=== PATIENT | female | born 1945 | race Caucasian/White ===

== ENCOUNTER 2018-07-24 04:50 | Inpatient (IN) ==
[2018-07-18 13:23] LABS: Appearance,Urine CLOUDY; Bacteria,Urine FEW /hpf (0); Bilirubin,Urine NEG (NEG); Color,Urine YELLOW; Glucose,Urine (UA) NEGATIVE (NEG); Leukocyte Esterase,Urine 500 /uL (NEG); Protein,Urine NEG (NEG); Specific Gravity,Urine 1.019 (1.000-1.035); Urine Blood 0.03 mg/dL (<0.03); Urine RBC 8 /hpf (0-1); Urine Squamous Epithelial Cell 24 /hpf (0-4); Urine Transitional Epi Cells < 1 /hpf (0-2); Urine WBC > 182 /hpf (0-4); Urobilinogen,Urine NEG (NEG)
[2018-07-18 16:43] LABS: Basophils # (Auto) 0 K/mcL (0.0-0.3); Basophils % (Auto) 0.3 % (0.0-2.0); Eosinophils # (Auto) 0.1 K/mcL (0.0-0.7); Eosinophils % (Auto) 1.5 % (0.0-7.0); Granulocytes % (Auto) 55.4 % (38.0-78.0); Lymphocytes # (Auto) 3.3 K/mcL (1.5-4.8); Lymphocytes % (Auto) 35.2 % (15.5-49.0); Mean Cell Volume 86.4 fL (80.0-100.0); Mean Corpuscular HGB Conc 32.4 g/dL (31.0-36.0); Monocytes # (Auto) 0.7 K/mcL (0.1-0.9); Monocytes % (Auto) 7.6 % (1.0-12.0); Platelet Count 194 K/mcL (140-440); RBC 4.59 M/mcL (4.00-5.20); Red Cell Distribution Width 15.6 % (11.5-14.5)
[2018-07-18 17:26] LABS: Blood Urea Nitrogen 21 mg/dl (8-23)
[2018-07-24] MEDS ORDERED: PREGABALIN 75 MG CAPSULE PO SCH (07:00)
[2018-07-24] MEDS ORDERED: ACETAMINOPHEN 500 MG TABLET PO SCH (07:00)
[2018-07-24] MEDS ORDERED: CELECOXIB 200 MG CAPSULE PO SCH (07:00)
[2018-07-24] MEDS ORDERED: oxyCODONE 10 MG TAB.ER.12H PO SCH (07:00)
[2018-07-24] MEDS ORDERED: 0.9 % SODIUM CHLORIDE 9 ML, KETOROLAC 30 MG, ROPIVACAINE HCL/PF 49.5 ML, EPINEPHrine 0.... IJ SCH (07:00)
[2018-07-24] MEDS ORDERED: ceFAZolin 1 GM VIAL IV SCH (07:00)
[2018-07-24] MEDS ORDERED: ROPIVACAINE HCL/PF 20 ML VIAL IJ ONE (07:40)
[2018-07-24] MEDS ORDERED: MIDAZOLAM 2 MG/2 ML VIAL IV ONE (07:40)
[2018-07-24] MEDS ORDERED: LIDOCAINE HCL/PF 100 MG/5 ML SYRINGE IV ONE (07:40)
[2018-07-24] MEDS ORDERED: ONDANSETRON 4 MG/2 ML VIAL IV ONE (07:40)
[2018-07-24] MEDS ORDERED: DEXAMETHASONE 10 MG/ML VIAL IV ONE (07:40)
[2018-07-24] MEDS ORDERED: GLYCOPYRROLATE 0.2 MG/ML VIAL IV ONE (07:40)
[2018-07-24] MEDS ORDERED: KETAMINE 100 MG/ML ML IV ONE (07:40)
[2018-07-24] MEDS ORDERED: ePHEDrine 50 MG/ML AMPUL IV ONE (07:40)
[2018-07-24] MEDS ORDERED: TRANEXAMIC ACID 1,000 MG/10 ML VIAL IV ONE ×2 (07:40→09:05)
[2018-07-24] MEDS ORDERED: PROPOFOL 200 MG/20 ML VIAL IV ONE (07:40)
[2018-07-24] MEDS ORDERED: NALOXONE HCL 0.4 MG/ML VIAL IV PRN (08:00)
[2018-07-24] MEDS ORDERED: HYDROmorphone 2 MG/ML VIAL IV PRN (08:00)
[2018-07-24] MEDS ORDERED: BENZOCAINE/MENTHOL 1 LOZENGE PO PRN ×2 (08:00→09:05)
[2018-07-24] MEDS ORDERED: LACTATED RINGERS 250 ML IV PRN (08:00)
[2018-07-24] MEDS ORDERED: ONDANSETRON 4 MG/2 ML VIAL IV PRN ×2 (08:00→09:05)
[2018-07-24] MEDS ORDERED: MEPERIDINE 25 MG/ML SYRINGE IV PRN (08:00)
[2018-07-24] MEDS ORDERED: METOPROLOL TARTRATE 5 MG/5 ML VIAL IV PRN (08:00)
[2018-07-24] MEDS ORDERED: METHOCARBAMOL 1,000 MG/10 ML VIAL IV PRN (08:00)
[2018-07-24] MEDS ORDERED: LACTATED RINGERS 1,000 ML IV SCH (08:00)
[2018-07-24] MEDS ORDERED: FLUMAZENIL 0.1 MG/ML ML IV PRN (08:00)
[2018-07-24] MEDS ORDERED: IPRATROPIUM/ALBUTEROL 3 ML AMPUL.NEB NEB PRN (08:00)
[2018-07-24] MEDS ORDERED: GENTAMICIN SULFATE 800 MG/20 ML VIAL IR ONE (08:05)
[2018-07-24] MEDS ORDERED: BISACODYL 10 MG SUPP.RECT PR PRN (09:05)
[2018-07-24] MEDS ORDERED: MAGNESIUM HYDROXIDE 30 ML ORAL.SUSP PO PRN (09:05)
[2018-07-24] MEDS ORDERED: FLEETS ADULT ENEMA PR PRN (09:05)
[2018-07-24] MEDS ORDERED: POLYETHYLENE GLYCOL 3350 17 GM PACKET PO PRN (09:05)
[2018-07-24] MEDS ORDERED: TEMAZEPAM 15 MG CAPSULE PO PRN (09:05)
[2018-07-24] MEDS ORDERED: ACETAMINOPHEN 325 MG TABLET PO PRN (09:05)
--- NOTE | 2018-07-24 09:05 | Brief Operative Note ---
Date of procedure: 07/24/18 Pre-op diagnosis: Right knee djd severe Post-op diagnosis: same Procedure: right tka cemented Grafts/Implants: Yes Anesthesia: GETA Findings: none Complications: none Complications Description: 07/24/18 09:03 right knee djd Surgeon: Chencho Espinal Building Specialist: Maulik Bass Estimated blood loss (cc): 30 Tourniquet Time (Minutes): 44 Specimens Removed/Pathology: none sent Condition: stable Disposition: PACU
[2018-07-24] MEDS: fentaNYL 100 MCG/2 ML VIAL IV PRN ×4 (09:27→09:45)
--- NOTE | 2018-07-24 09:31 | Operative Note ---
DATE OF OPERATION: 07/24/2018 PREOPERATIVE DIAGNOSIS: Right knee degenerative arthritis. POSTOPERATIVE DIAGNOSIS: Right knee degenerative arthritis. PROCEDURE: Right total knee arthroplasty. SURGEON: Chencho Espinal MD TAKE AWAY WORKER: Maulik Bass PA-C ANESTHESIA: General LMA and spinal by Jason Mccoy CRNA COMPLICATIONS: None. TOURNIQUET TIME: Approximately 44 minutes. ESTIMATED BLOOD LOSS: About 30 mL DESCRIPTION OF PROCEDURE: The patient was brought to the operating room, put to sleep with general LMA anesthesia. Once asleep, the patient had the right leg sterilely prepped and draped in the usual sterile fashion. Ioban was placed over the skin. A timeout performed to confirm the operative site and procedure. Preop antibiotics and tranexamic acid was given. We then made a midline incision. We then proceeded with exposing the capsule. A mid vastus approach was performed. We then exposed the joint and identified the severe arthritis of the lateral compartment and posterior medial compartment was severely worn with spurs in both compartments. At this point, we proceeded with total knee arthroplasty and made an intramedullary guide amelia into the femur and the tibia and made our distal femoral cut at 9 mm, made our anterior and posterior chamfer cuts for a size 4 after sizing the femur. We placed an intramedullary guide amelia down the tibia and made our cut at 8 mm from the least involved medial compartment. Once done, we then removed the remnants of the ACL and meniscus. Spurs were removed. We punched into place a size 4 tibial baseplate and made the box cut for a size 4 femur. I then irrigated thoroughly and then placed a size 4 trial on the femur. We placed a size 9, 8 and 7 poly. We had to make a secondary cut on the tibia because of the tightness of the joint. We recut the tibia 2 mm thinner. We then trialed a size 9 poly which seemed to fit very nicely with full range of motion, 1 mm play medial and lateral throughout extension, mid flexion and flexion. We irrigated thoroughly and then injected the soft tissues with post-inject formula, thoroughly irrigated the joint and then cemented into place a size 4 tibial baseplate, size 4 femur. We placed a 9 mm poly, placed the knee in extension and prepared the patella which measured 24 mm. This was cut to 14 mm in total thickness and we placed a 35 mm patellar button that covered very nicely. A small chamfer cut was made laterally. We then cemented into place a 35 mm patellar button. We irrigated thoroughly and then deflated the tourniquet at 44 minutes. We controlled bleeding with the Bovie. We placed the knee at mid flexion and reinspected for any bone cement. We thoroughly irrigated the knee once more, placed Stratafix stitches x2 along the medial capsule to close on the mid vastus approach. We then closed the skin with Stratafix and adhesive closure. The patient tolerated this well. There was no complication. Sterile bandage was applied. RBH:angi Job ID: [id number] Doc ID: [id number] Chencho Espinal MD
[2018-07-24] MEDS: HYDROmorphone 2 MG/ML VIAL IV PRN ×2 (10:07→11:00)
--- NOTE | 2018-07-24 10:28 | XRay Report ---
CLINICAL INFORMATION: Postsurgical follow-up TECHNIQUE: AP and crosstable lateral right knee COMPARISON: None. FINDINGS: Previous right total knee arthroplasty. Femoral and tibial components are in anatomic positions. There is postsurgical soft tissue and intra-articular gas. IMPRESSION: Right total knee arthroplasty Interpreted and Authenticated by: Son Elena 07/24/18
[2018-07-24] MEDS: 0.45 % SODIUM CHLORIDE 1,000 ML IV SCH ×3 (10:35→20:50)
[2018-07-24] MEDS: HYDROcodone/APAP 10/325MG TABLET PO PRN ×4 (10:59→23:59)
[2018-07-24] MEDS: KETOROLAC 15 MG/ML VIAL IV SCH ×3 (10:59→23:58)
[2018-07-24] MEDS: FERROUS SULFATE 325 MG TABLET PO SCH ×2 (10:59→17:28)
[2018-07-24] MEDS: 0.9 % SODIUM CHLORIDE 10 ML SYRINGE IV SCH ×2 (12:11→22:49)
[2018-07-24] MEDS: ceFAZolin 1 GM VIAL IV SCH ×2 (17:28→23:59)
[2018-07-24] MEDS: DOCUSATE SODIUM 100 MG CAPSULE PO SCH (20:51)
[2018-07-24] MEDS: ASPIRIN 325 MG ENTERIC COATED TABLET PO SCH (20:51)
[2018-07-24] MEDS ORDERED: CALCIUM CARB PO SCH (21:00)
[2018-07-24] MEDS ORDERED: MAG OX PO SCH (21:00)
[2018-07-24] MEDS ORDERED: ZINC SULF PO SCH (21:00)
[2018-07-24] MEDS ORDERED: SENNOSIDES 1 TABLET PO SCH (21:00)
[2018-07-24] MEDS ORDERED: ATORVASTATIN 20 MG TABLET PO SCH (21:00)
[2018-07-25] MEDS: 0.45 % SODIUM CHLORIDE 1,000 ML IV SCH (05:04)
[2018-07-25] MEDS: 0.9 % SODIUM CHLORIDE 10 ML SYRINGE IV SCH ×2 (05:09→13:11)
[2018-07-25] MEDS: KETOROLAC 15 MG/ML VIAL IV SCH ×3 (05:09→16:43)
[2018-07-25] MEDS: HYDROcodone/APAP 10/325MG TABLET PO PRN ×4 (05:09→17:02)
[2018-07-25] MEDS: HYDROmorphone 2 MG/ML VIAL IV PRN (06:42)
[2018-07-25] MEDS ORDERED: LEVOTHYROXINE 75 MCG TABLET PO SCH (07:30)
--- NOTE | 2018-07-25 08:04 | Orthopedic Progress Note ---
Subjective Patient information: Note initiated : 07/25/18 at 8:03 am Service Date, if different from initiated Date: [] Patient: Jennie Ho 72 y/o F admitted on 07/24/18 for Right Total Knee Arthroplasty. Chief Complaint: [Pt is stable this morning on post operative day 1 without any significant concerns or complaints. Patients vital signs have remained stable. Patients dressing is dry and is grossly intact from a neurovascular and motor standpoint. Patients 10 point ROS is otherwise negative. ] Objective Vital signs: Vital Signs Temp Pulse Resp BP Pulse Ox 07/25/18 04:00 97.4 F 54 L 20 104/61 93 07/25/18 00:00 97.3 F 52 L 16 112/63 91 07/24/18 20:00 97.2 F 60 20 104/63 95 07/24/18 15:46 58 L 114/75 92 07/24/18 12:56 55 L 119/73 91 07/24/18 12:05 61 112/66 95 07/24/18 11:35 52 L 108/65 94 07/24/18 11:05 58 L 117/67 93 07/24/18 10:50 55 L 120/68 92 07/24/18 10:40 93 07/24/18 10:35 49 L 107/60 92 07/24/18 10:20 56 L 105/62 91 07/24/18 10:12 98.2 F 54 L 11 L 122/64 96 07/24/18 10:02 67 13 118/45 94 07/24/18 09:45 98.2 F 72 17 142/61 91 07/24/18 09:35 87 17 142/61 91 07/24/18 09:30 68 15 138/64 97 07/24/18 09:25 77 20 145/59 92 07/24/18 09:20 98.1 F 85 14 134/61 96 Intake and Output 07/24/18 07/25/18 07/25/18 21:59 05:59 13:59 Intake Total 1740 800 Output Total 300 Balance 1740 500 Intake: IV 1000 Sodium Chloride 0.45% 1,000 ml 1000 @ 100 mls/hr IV .Q10H [facility]IA Rx#: [id number] Oral 740 800 Output: Void Amount 300 Other: Meal Dinner Percent of Meal Consumed 100% Feeding Ability Independent # Voids 1 Weight 270 lb Intake & Output: Intake & Output 07/24/18 07/25/18 07/25/18 21:59 05:59 13:59 Intake Total 1740 800 Output Total 300 Balance 1740 500 Weight 270 lb Intake: IV 1000 Sodium Chloride 0.45% 1,000 ml 1000 @ 100 mls/hr IV .Q10H [facility]IA Rx#: [id number] Oral 740 800 Output: Void Amount 300 Other: Meal Dinner Percent of Meal Consumed 100% Feeding Ability Independent # Voids 1 Incision: Yes healing Incision clean and dry: Yes Dressing: Yes clean Weight bearing status: full Neurological exam IM: Yes motor sensory intact, Yes neurovascular intact Extremities exam IM: Yes Foot pink and warm, Yes neurovascular intact - Labs CBC & BMP: 07/25/18 04:45 07/18/18 11:54 Labs: 07/25/18 07/18/18 04:45 11:54 Hgb 12.8 Hct 32.9 L 39.6 Assessment and Plan (1) Hx of total knee arthroplasty The patient has been educated regarding dressing care, Physical Therapy recommendations, home exercises, restrictions, and follow up appointments. The patient has had all necessary DME prescribed. The patient has remained relatively stable during their hospital course. Leave Dermabond patch intact until followup Status: Acute
--- NOTE | 2018-07-25 08:06 | Discharge Summary ---
Ortho Discharge - TKA - Patient Instructions Diet: Regular Diet Activity: activity as tolerated, weight bearing as tolerated Total Knee Protocol: For Total Knee: Start ROM ESTELLE with stationary bike or rocking chair. Work on gaining full extension of knee. Posterior dislocation precautions provided. Hip abductor strengthening and gait training instructions provided. Apply Cryocuff as instructed. Dressing Care: May shower in 2 days - Problem Maintenance (1) Hx of total knee arthroplasty Status: Acute - Follow Up Plan Follow Up Appointments: Maulik Bass PA-C [[employer] Specialist] - 08/08/18 10:00 am Disposition: Home, Self-Care Prognosis: Good Rehab Potential: Good I certify that the patient requires SNF services: No Overall status at discharge: patient is progressing back to baseline - Orders For Discharge Prescriptions: Aspirin [Ecotrin] 325 mg PO BID #60 tab.ec Docusate Sodium [Colace] 100 mg PO BID #60 capsule HYDROcodone/APAP 10/325MG [[place] 10-325Mg] 1 - 2 tab PO Q4HP PRN #75 tab PRN Reason: Pain Level 3-6
[2018-07-25] MEDS ORDERED: BISOPROLOL 5 MG TABLET PO SCH (09:00)
[2018-07-25] MEDS ORDERED: ASPIRIN 81 MG TAB.CHEW PO SCH (09:00)
[2018-07-25] MEDS ORDERED: CHLORTHALIDONE 25 MG TABLET PO SCH (09:00)
[2018-07-25] MEDS ORDERED: LOSARTAN 50 MG TABLET PO SCH (09:00)
[2018-07-25] MEDS: DOCUSATE SODIUM 100 MG CAPSULE PO SCH (09:04)
[2018-07-25] MEDS: ASPIRIN 325 MG ENTERIC COATED TABLET PO SCH (09:04)
[2018-07-25] MEDS: FERROUS SULFATE 325 MG TABLET PO SCH ×2 (11:28→16:43)
== END 2018-07-25 17:30 | disposition home or self-care (01) | DRG 470 ==
LOC: MEDSUR 04:50
PROVIDERS: ADMIT Orthopaedic Surgery; ATTEND Orthopaedic Surgery

== ENCOUNTER 2021-07-25 07:00 | Inpatient (IN) ==
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
[2021-07-25] MEDS ORDERED: DILTIAZEM 25 MG/5 ML VIAL IV ONE ×2 (07:34→08:58)
[2021-07-25] MEDS ORDERED: ONDANSETRON 4 MG/2 ML VIAL IV ONE (07:34)
[2021-07-25] MEDS ORDERED: 0.9 % SODIUM CHLORIDE 1,000 ML IV ONE (07:36)
--- NOTE | 2021-07-25 08:20 | XRay Report ---
INDICATION: dyspnea TECHNIQUE: AP portable semiupright chest x-ray COMPARISON: Previous chest x-ray dated 04/03/2021 FINDINGS: Examination is suboptimal due to patient's large size and portable technique Lungs:No acute or focal pulmonary parenchymal infiltrate. No pulmonary parenchymal mass Heart, vascular:No significant cardiomegaly. Pulmonary vascularity is normal. No pulmonary edema or pulmonary congestion Mediastinum, chriss:No mediastinal widening. No hilar mass Pleura:No pleural fluid. No pleural-based mass or calcification Skeletal:Previous median sternotomy IMPRESSION: 1. No acute abnormality 2. No significant interval change since 04/03/2021 Interpreted and Authenticated by: Son Elena 07/25/21
[2021-07-25 08:37] LABS: Basophils # (Auto) 0.01 K/mcL (0.00-0.30); Basophils % (Auto) 0.2 % (0.0-2.0); Eosinophils # (Auto) 0 K/mcL (0.00-0.70); Eosinophils % (Auto) 0 % (0.0-7.0); Hematocrit 41.9 % (34.1-44.9); Hemoglobin 13.9 g/dL (11.2-15.7); Lymphocytes # (Auto) 1.29 K/mcL (1.50-4.80); Lymphocytes % (Auto) 29.4 % (15.5-49.0); Mean Cell Volume 81.5 fL (80.0-100.0); Mean Corpuscular HGB Conc 33.2 g/dL (31.0-36.0); Mean Platelet Volume 10.9 fL (7.4-10.4); Monocytes # (Auto) 0.46 K/mcL (0.10-0.90); Monocytes % (Auto) 10.5 % (1.0-12.0); Neutrophils % (Auto) 59.9 % (38.0-78.0); Platelet Count 156 K/mcL (140-440); RBC 5.14 M/mcL (3.59-5.38); Red Cell Distribution Width 15.6 % (11.5-14.5); WBC 4.4 K/mcL (4.5-11.0)
[2021-07-25 08:55] LABS: proBNP 701.6 pg/mL (<125.0)
[2021-07-25 08:57] LABS: ALT/SGPT 73 U/L (<40); AST/SGOT 60 U/L (<32); Albumin 3.8 gm/dL (3.2-5.2); Albumin/Globulin Ratio 1.7 (1.0-2.3); Alkaline Phosphatase 92 U/L (39-117); Bilirubin,Total 0.5 mg/dL (0.1-1.0); Blood Urea Nitrogen 32 mg/dL (8-23); Calcium 8.6 mg/dL (8.6-10.4); Carbon Dioxide 18 mmol/L (22-30); Chloride 102 mmol/L (96-108); Globulin 2.3 gm/dL (2.2-3.7); Glomerular Filtration Rate 44; Glucose 120 mg/dL (70-105)
[2021-07-25] MEDS ORDERED: DILTIAZEM 30 MG TABLET PO ONE (08:58)
[2021-07-25] MEDS ORDERED: POTASSIUM CHLORIDE 20 MEQ TABLET PO ONE (08:59)
[2021-07-25 11:43] LABS: Appearance,Urine Clear (Clear); Bacteria,Urine FEW /hpf (0); Bilirubin,Urine Negative (Negative); Color,Urine Yellow; Culture Indicated,Urine No; Glucose,Urine (UA) Negative (Negative); Ketones,Urine Negative (Negative); Leukocyte Esterase,Urine Small /uL (Negative); Mucus,Urine FEW /hpf; Nitrate,Urine Negative (Negative); PH,Urine 5.5 (5.0-9.0); Protein,Urine Negative (Negative); Specific Gravity,Urine 1.015 (1.000-1.035); Urine Blood Moderate ery/mcL (Negative); Urine Hyaline Cast 4 /lph (0-2); Urine RBC 20 /hpf (0-3); Urine Squamous Epithelial Cell 7 /hpf (0-4); Urine Transitional Epi Cells < 1 /hpf (0-2); Urine WBC 11 /hpf (0-4); Urobilinogen,Urine Normal
[2021-07-25] MEDS ORDERED: cefTRIAXone 1 GM VIAL IV ONE (11:57)
[2021-07-25] MEDS ORDERED: METOPROLOL TARTRATE 5 MG/5 ML VIAL IV ONE (11:58)
--- NOTE | 2021-07-25 12:18 | EKG ---
[facility] Test Date: 2021-07-25 Pat Name: Jennie Balbuena Department: ED Room: Gender: Female Can Repairer: : 1945 Requested By: Luis F Blount Order Number: [id number] Reading MD: Manuel Toney Measurements Intervals [place] Rate: 134 P: TN: QRS: 52 QRSD: 99 T: -16 QT: 335 QTc: 501 Interpretive Statements Atrial fibrillation Anteroseptal infarct, age indeterminate Prolonged QT interval Electronically Signed On 07-25-2021 12:18:41 PST by Manuel Toney /store/M0/[id number]
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
[2021-07-25] MEDS ORDERED: SENNOSIDES 1 TABLET PO PRN (16:25)
[2021-07-25] MEDS ORDERED: IPRATROPIUM/ALBUTEROL 3 ML AMPUL.NEB NEB PRN (16:25)
[2021-07-25] MEDS ORDERED: ONDANSETRON 4 MG/2 ML VIAL IV PRN (16:25)
[2021-07-25] MEDS ORDERED: METOPROLOL TARTRATE 5 MG/5 ML VIAL IV PRN (16:25)
[2021-07-25] MEDS ORDERED: LACTULOSE 20 GM/30 ML ORAL.SOL PO PRN (16:25)
[2021-07-25] MEDS ORDERED: REMDESIVIR 200 MG in 0.9 % SODIUM CHLORIDE 250 ML IV ONE (16:25)
[2021-07-25] MEDS ORDERED: ACETAMINOPHEN 325 MG TABLET PO PRN (16:25)
[2021-07-25] MEDS ORDERED: DEXAMETHASONE 10 MG/ML VIAL ONE (16:37)
[2021-07-25] MEDS: DEXAMETHASONE 10 MG/ML VIAL IV SCH (17:03)
[2021-07-25] MEDS: 0.9 % SODIUM CHLORIDE 1,000 ML IV SCH (17:07)
[2021-07-25] MEDS: DOCUSATE SODIUM 100 MG CAPSULE PO SCH (20:24)
[2021-07-25] MEDS: 0.9 % SODIUM CHLORIDE 10 ML SYRINGE IV SCH (20:33)
[2021-07-25] MEDS: ENOXAPARIN 40 MG/0.4 ML SYRINGE SQ SCH (20:33)
[2021-07-25] MEDS: ATORVASTATIN 40 MG TABLET PO SCH (20:33)
[2021-07-25] MEDS ORDERED: METOPROLOL TARTRATE 50 MG TABLET PO SCH (21:00)
[2021-07-26] MEDS: 0.9 % SODIUM CHLORIDE 1,000 ML IV SCH ×3 (01:04→19:04)
[2021-07-26] MEDS: 0.9 % SODIUM CHLORIDE 10 ML SYRINGE IV SCH ×3 (05:14→20:48)
[2021-07-26 07:17] LABS: Hematocrit 41.3 % (34.1-44.9); Hemoglobin 12.6 g/dL (11.2-15.7); Mean Cell Volume 87.5 fL (80.0-100.0); Mean Corpuscular HGB Conc 30.5 g/dL (31.0-36.0); Platelet Count 137 K/mcL (140-440); RBC 4.72 M/mcL (3.59-5.38); Red Cell Distribution Width 15.7 % (11.5-14.5); WBC 2.4 K/mcL (4.5-11.0)
[2021-07-26 07:40] LABS: ALT/SGPT 81 U/L (<40); AST/SGOT 68 U/L (<32); Albumin 3.3 gm/dL (3.2-5.2); Albumin/Globulin Ratio 1.6 (1.0-2.3); Alkaline Phosphatase 88 U/L (39-117); Bilirubin,Direct 0.2 mg/dL (<0.3); Bilirubin,Total 0.4 mg/dL (0.1-1.0); Blood Urea Nitrogen 23 mg/dL (8-23); Calcium 7.9 mg/dL (8.6-10.4); Carbon Dioxide 18 mmol/L (22-30); Chloride 106 mmol/L (96-108); Glomerular Filtration Rate 55; Glucose 143 mg/dL (70-105); Lactate Dehydrogenase 216 U/L (135-225); Triglycerides 82 mg/dL (<150); Uric Acid 6.2 mg/dL (2.5-8.0)
[2021-07-26 07:51] LABS: C-Reactive Protein 0.6 mg/dL (0.03-0.80); Thyroid Stimulating Hormone 0.44 uIU/mL (0.27-5.01)
[2021-07-26] MEDS: DEXAMETHASONE 10 MG/ML VIAL IV SCH (07:57)
[2021-07-26] MEDS: VITAMIN D3 25 MCG TABLET PO SCH (07:57)
[2021-07-26] MEDS: ENOXAPARIN 40 MG/0.4 ML SYRINGE SQ SCH ×2 (07:58→20:05)
[2021-07-26] MEDS: ASPIRIN 81 MG TAB.CHEW PO SCH (07:58)
[2021-07-26] MEDS: SERTRALINE 100 MG TABLET PO SCH (07:58)
[2021-07-26] MEDS: DOCUSATE SODIUM 100 MG CAPSULE PO SCH ×2 (07:58→20:05)
[2021-07-26] MEDS: LEVOTHYROXINE 75 MCG TABLET PO SCH (07:58)
[2021-07-26 08:33] LABS: Anisocytosis 1+ (None Seen); Band Neutrophils % 2 % (0-10); Lymphocytes % 32 % (15-49); Monocytes % (Manual) 14 % (1-12); Platelet Estimate DECREASED (Normal); RBC Morphology ABNORMAL (Normal); Reactive Lymphocytes 1 % (0-2); Segmented Neutrophils % 51 % (38-78)
[2021-07-26] MEDS ORDERED: LEVOTHYROXINE 75 MCG PO SCH (09:00)
[2021-07-26] MEDS ORDERED: METOPROLOL TARTRATE 50 MG TABLET PO SCH ×2 (09:00→11:47)
--- NOTE | 2021-07-26 10:30 | Internal Med Progress Note ---
SUBJECTIVE Subjective Patient information: Note initiated : 07/26/21 at 10:23 am Service Date, if different from initiated Date: [] Patient: Jennie Ho a 75 y/o F admitted on 07/25/21 for short of breath. Chief Complaint: [] Principal diagnosis: Shortness of breath Interval history: Ms. Yoni Balbuena is a 75 year old female with a history of hypertension, chronic kidney disease stage III, atrial fibrillation, coronary artery disease status post CABG, hypothyroidism, mild COPD, obstructive sleep apnea, diastolic dysfunction, obesity presented to the emergency department for shortness of breath and nausea. The patient was recently exposed to Covid by a family member. In the emergency department, the patient tested positive for Covid via Melani of rapid antigen test. The patient had a 2 L/min oxygen requirement. In addition, the patient was found to be in atrial fibrillation with rapid ventricular response and received multiple doses of IV Cardizem then IV Lopressor. Chest x-ray did not show any acute changes. CBC and chemistry panel remarkable for mild leukopenia, hypokalemia, creatinine of 1.2 which is near her baseline, mildly elevated ALT and AST. Hospital medicine was consulted for admission. The patient says that her symptoms began about 7 days prior to admission. The patient has not been vaccinated for COVID. 07/26 On room air, converted from atrial fibrillation to sinus bradycardia. Decrease Lopressor to 25 mg twice daily. Discussed risks and benefits of oral anticoagulation for paroxysmal atrial fibrillation, the patient wants to think about it some more and possibly discuss it with her primary care provider. Hypokalemia and hypomagnesemia resolved after supplementation. Creatinine back to patient's baseline. Mildly elevated LFTs. Patient still feels very weak, not ready to go home yet. Awaiting PT recommendations. Physical exam Head: Atraumatic, normal inspection. Eyes: normal appearance, no scleral icterus. Neck: full ROM Respiratory: no respiratory distress. Cardiovascular: Regular bradycardia, S1, S2. GI/Abdominal: Obesely distended, soft, nontender, no guarding. Extremities: full range of motion, nontender. Neurological: CN II-XII intact, intact motor, intact sensation. Psychiatric: normal mood. Skin: warm, normal color Constitutional Vitals: Vital Signs Temp Pulse Resp BP Pulse Ox 97.0 F 46 L 22 128/84 94 07/26/21 08:01 07/26/21 08:01 07/26/21 08:01 07/26/21 08:01 07/26/21 08:01 Period Temp Pulse Resp BP Sys/[place] Pulse Ox Last 24 Hr 97.0 F-98.8 F 25-144 8-30 81-160/58-139 88-98 Intake and Output 07/25/21 07/26/21 07/26/21 21:59 05:59 13:59 Intake Total 086 171 1557 Output Total 625 400 275 Balance -343 586 5978 Weight 134.626 kg Intake & Output: Intake & Output 07/25/21 07/26/21 07/26/21 21:59 05:59 13:59 Intake Total 964 988 0315 Output Total 625 400 275 Balance -254 458 5333 Weight 134.626 kg Intake: IV 160 488 2831 Sodium Chloride 0.9% 1,000 ml @ 994 1000 125 mls/hr IV .Q8H [facility] Rx#: [id number] [place] 200 mg In Sodium 250 Chloride 0.9% 250 ml @ 500 mls/ hr IV ONCE ONE Rx#:[id number] Oral 700 Output: Void Amount 625 400 275 Other: Meal Dinner Breakfast Percent of Meal Consumed 100% 100% Feeding Ability Independent Independent Urine Appearance Sediment Clear Clear Urine Color Light Faina Bright Yellow Light Faina Urine Odor Strong Stool Size Small Stool Color Brown Stool Consistency Soft # Bowel Movements 1 OBJ DATA Labs CBC & Chem 7: 07/26/21 06:02 07/26/21 06:01 Labs: Abnormal Lab Results 07/26/21 07/26/21 07/25/21 06:02 06:01 09:45 WBC 2.4 L MCHC 30.5 L RDW 15.7 H Plt Count 137 L MPV 11.0 H Lymph # (Auto) Monocytes % (Manual) 14 H Platelet Estimate Decreased A RBC Morphology Abnormal A Anisocytosis 1+ A D-Dimer Potassium Carbon Dioxide 18 L BUN Creatinine Glucose 143 H Calcium 7.9 L GGT 50 H AST 68 H ALT 81 H NT-Pro-B Natriuret Pep Total Protein 5.3 L Globulin 2.0 L Urine Occult Blood Moderate A Ur Leukocyte Esterase Small A Urine RBC 20 H Urine WBC 11 H Ur Squamous Epith Cells 7 H Urine Bacteria Few A Hyaline Casts 4 H Urine Mucus Few A 07/25/21 07/25/21 07/25/21 08:06 08:06 08:06 WBC 4.4 L MCHC RDW 15.6 H Plt Count MPV 10.9 H Lymph # (Auto) 1.29 L Monocytes % (Manual) Platelet Estimate RBC Morphology Anisocytosis D-Dimer 0.60 H Potassium 3.0 L Carbon Dioxide 18 L BUN 32 H Creatinine 1.2 H Glucose 120 H Calcium GGT AST 60 H ALT 73 H NT-Pro-B Natriuret Pep 701.6 H Total Protein Globulin Urine Occult Blood Ur Leukocyte Esterase Urine RBC Urine WBC Ur Squamous Epith Cells Urine Bacteria Hyaline Casts Urine Mucus Meds: Medications Acetaminophen (Acetaminophen 325 Mg Tablet) 650 mg PO Q6HP PRN; Protocol PRN Reason: Per Pain Protocol/Fever > 101 Hydrocodone Bitart/Acetaminophen (Hydrocodone/Apap 5/325mg Tablet) 1 tab PO Q8HP PRN; Protocol PRN Reason: pain Albuterol/Ipratropium (Ipratropium/Albuterol 3 Ml Ampul.Neb) 3 ml NEB Q4HRT PRN PRN Reason: wheezing Aspirin (Aspirin 81 Mg Tab.Chew) 81 mg PO DAILY [facility] Last Admin: 07/26/21 07:58 Dose: 81 mg Documented by: Atorvastatin Calcium (Atorvastatin 40 Mg Tablet) 40 mg PO HS [facility] Last Admin: 07/25/21 20:33 Dose: 40 mg Documented by: Dexamethasone (Dexamethasone 10 Mg/Ml Vial) 6 mg IV DAILY [facility] Stop: 08/03/21 09:01 Last Admin: 07/26/21 07:57 Dose: 6 mg Documented by: Docusate Sodium (Docusate Sodium 100 Mg Capsule) 100 mg PO BID [facility] Last Admin: 07/26/21 07:58 Dose: Not Given Documented by: Enoxaparin Sodium (Enoxaparin 40 Mg/0.4 Ml Syringe) 40 mg SQ BID [facility] Last Admin: 07/26/21 07:58 Dose: 40 mg Documented by: REMDESIVIR 100 mg/ Sodium (Chloride) 250 mls @ 500 mls/hr IV DAILY@1200 [facility] Stop: 07/29/21 12:29 Sodium Chloride (Sodium Chloride 0.9%) 1,000 mls @ 125 mls/hr IV .Q8H [facility] Last Admin: 07/26/21 09:50 Dose: 125 mls/hr Documented by: Lactulose (Lactulose 20 Gm/30 Ml Oral.Grazyna) 10 gm PO DAILYP PRN PRN Reason: Constipation Levothyroxine Sodium (Levothyroxine 75 Mcg Tablet) 75 mcg PO QAMAC [facility] Last Admin: 07/26/21 07:58 Dose: 75 mcg Documented by: Metoprolol Tartrate (Metoprolol Tartrate 5 Mg/5 Ml Vial) 5 mg IV Q2H PRN PRN Reason: Tachyarrhythmias Metoprolol Tartrate (Metoprolol Tartrate 50 Mg Tablet) 25 mg PO BID [facility] Ondansetron HCl (Ondansetron 4 Mg/2 Ml Vial) 4 mg IV Q4HP PRN; Protocol PRN Reason: Nausea And Vomiting Pneumococcal Polyvalent Vaccine (Pneumococcal 23-Nataly P-Sac Vac 0.5 Ml Syringe) 0.5 ml IM .ONCE ONE Stop: 07/28/21 10:01 Senna (Sennosides 1 Tablet) 2 tab PO HSP PRN PRN Reason: Constipation Sertraline HCl (Sertraline 100 Mg Tablet) 100 mg PO QDAY [facility] Last Admin: 07/26/21 07:58 Dose: 100 mg Documented by: Sodium Chloride (0.9 % Sodium Chloride 10 Ml Syringe) 10 ml IV Q8 [facility] Last Admin: 07/26/21 05:14 Dose: Not Given Documented by: Vitamin D (Vitamin D3 25 Mcg Tablet) 100 mcg PO DAILY [facility] Last Admin: 07/26/21 07:57 Dose: 100 mcg Documented by: A/P Narrative A/P Narrative: Assessment: 75 year old female with a history of hypertension, chronic kidney disease stage III, atrial fibrillation, coronary artery disease status post CABG, hypothyroidism, mild COPD, obstructive sleep apnea, diastolic dysfunction grade 2, obesity presented to the emergency department for shortness of breath and nausea and found to be hypoxic and in atrial fibrillation with rapid ventricular response. The patient tested positive for Covid which is probably the reason for the patient's presentation. Chest x-ray did not show any infiltrates. The patient's symptoms began about 7 days prior to admission, she has not been vaccinated for COVID. The patient was started on dexamethasone and remdesivir for hypoxia in the setting of Covid. She was started on Lopressor 50 mg twice daily. Hypoxia resolved, the patient converted from atrial fibrillation to sinus bradycardia. Lopressor was decreased to 25 mg twice daily. The patient continues to feel fatigue and generally weak. Awaiting PT recommendations. #Generalized weakness and fatigue secondary to COVID #Resolved hypoxic respiratory failure #Paroxysmal atrial fibrillation #Covid illness #Elevated LFTs likely secondary to COVID #Chronic kidney disease stage III #Essential hypertension #Mild COPD #Coronary artery disease status post CABG #Diastolic dysfunction, grade 2 #Hypothyroidism #Obstructive sleep apnea not on CPAP #Obesity BMI 48 Plan -Dexamethasone and remdesivir for COVID illness requiring oxygen supplementation. -Monitor respiratory status. -Follow potassium and magnesium, replace as needed. -Decrease Lopressor to 25 mg twice daily, as needed IV Lopressor for rate control. -Reviewed anticoagulation with the patient: [id number] score 4, HAS-BLED score 3, patient wants to think about anticoagulation -Defer TTE for now as the patient had one on 04/20/2021 and A. fib is a known diagnosis. -Discontinue IV fluid. -Continue home aspirin, atorvastatin, levothyroxine. -Holding home chlorthalidone, losartan for now. -CPAP at bedtime. 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 -Regular diet. -DVT prophylaxis: Lovenox SQ twice daily for obesity. -CODE STATUS: Full -Disposition: Probably home when stable versus SNF for rehab. Time Spent With Patient Time: Total time spent is greater than 50% in coordination of care (as documented) at patient's floor/unit and/or counseling patient: QUALITY VTE Deep Vein Thrombosis/Pulmonary Embolism Present on Admission: No
[2021-07-26] MEDS: METOPROLOL TARTRATE 25 MG TABLET PO SCH ×2 (12:33→20:06)
--- NOTE | 2021-07-26 13:12 | Internal Med Progress Note ---
SUBJECTIVE Subjective Patient information: Note initiated : 07/26/21 at 1:08 pm Service Date, if different from initiated Date: [] Patient: Jennie Ho a 75 y/o F admitted on 07/25/21 for short of breath. Chief Complaint: [] Principal diagnosis: Shortness of breath Interval history: Ms. Yoni Balbuena is a 75 year old female with a history of hypertension, chronic kidney disease stage III, atrial fibrillation, coronary artery disease status post CABG, hypothyroidism, mild COPD, obstructive sleep apnea, diastolic dysfunction, obesity presented to the emergency department for shortness of breath and nausea. The patient was recently exposed to Covid by a family member. In the emergency department, the patient tested positive for Covid via Melani of rapid antigen test. The patient had a 2 L/min oxygen requirement. In addition, the patient was found to be in atrial fibrillation with rapid ventricular response and received multiple doses of IV Cardizem then IV Lopressor. Chest x-ray did not show any acute changes. CBC and chemistry panel remarkable for mild leukopenia, hypokalemia, creatinine of 1.2 which is near her baseline, mildly elevated ALT and AST. Hospital medicine was consulted for admission. The patient says that her symptoms began about 7 days prior to admission. The patient has not been vaccinated for COVID. 07/26 On room air, converted from atrial fibrillation to sinus bradycardia. Decrease Lopressor to 25 mg twice daily. Discussed risks and benefits of oral anticoagulation for paroxysmal atrial fibrillation, the patient wants to think about it some more and possibly discuss it with her primary care provider. Hypokalemia and hypomagnesemia resolved after supplementation. Creatinine back to patient's baseline. Mildly elevated LFTs. Patient still feels very weak, not ready to go home yet. Awaiting PT recommendations. Physical exam Head: Atraumatic, normal inspection. Eyes: normal appearance, no scleral icterus. Neck: full ROM Respiratory: no respiratory distress. Cardiovascular: Regular bradycardia, S1, S2. GI/Abdominal: Obesely distended, soft, nontender, no guarding. Extremities: full range of motion, nontender. Neurological: CN II-XII intact, intact motor, intact sensation. Psychiatric: normal mood. Skin: warm, normal color Constitutional Vitals: Vital Signs Temp Pulse Resp BP Pulse Ox 97.0 F 50 L 12 137/82 96 07/26/21 12:01 07/26/21 12:01 07/26/21 12:01 07/26/21 12:01 07/26/21 12:01 Period Temp Pulse Resp BP Sys/Talamantes Pulse Ox Last 24 Hr 97.0 F-98.8 F 25-129 9-27 81-145/58-99 92-98 Intake and Output 07/25/21 07/26/21 07/26/21 21:59 05:59 13:59 Intake Total 674 444 3153 Output Total 625 400 275 Balance -365 859 8951 Weight 134.626 kg Intake & Output: Intake & Output 07/25/21 07/26/21 07/26/21 21:59 05:59 13:59 Intake Total 505 844 4626 Output Total 625 400 275 Balance -763 396 7720 Weight 134.626 kg Intake: IV 647 538 2588 Sodium Chloride 0.9% 1,000 ml @ 994 1000 125 mls/hr IV .Q8H [facility] Rx#: [id number] Veklury 200 mg In Sodium 250 Chloride 0.9% 250 ml @ 500 mls/ hr IV ONCE ONE Rx#:[id number] Oral 700 Output: Void Amount 625 400 275 Other: Meal Dinner Breakfast Percent of Meal Consumed 100% 100% Feeding Ability Independent Independent Urine Appearance Sediment Clear Clear Urine Color Light Faina Bright Yellow Light Faina Urine Odor Strong Stool Size Small Stool Color Brown Stool Consistency Soft # Bowel Movements 1 Exam: General: Alert, Awake, No acute Distress, obese Eyes/N/T: EOMI, Head/Neck: neck supple, CV: Regular but mildly bradycardia, No murmurs, Pulm: Clear b/l, no wheezing/rhonchi/rales Abd: soft, nontender, +BS x4 Ext: no clubbing/cyanosis/edema Neuro: Alert, no focal deficits, moves all extremities, Skin: warm/dry OBJ DATA Labs CBC & Chem 7: 07/26/21 06:02 07/26/21 06:01 Labs: Abnormal Lab Results 07/26/21 07/26/21 07/25/21 06:02 06:01 09:45 WBC 2.4 L MCHC 30.5 L RDW 15.7 H Plt Count 137 L MPV 11.0 H Lymph # (Auto) Monocytes % (Manual) 14 H Platelet Estimate Decreased A RBC Morphology Abnormal A Anisocytosis 1+ A D-Dimer Potassium Carbon Dioxide 18 L BUN Creatinine Glucose 143 H Calcium 7.9 L GGT 50 H AST 68 H ALT 81 H NT-Pro-B Natriuret Pep Total Protein 5.3 L Globulin 2.0 L Urine Occult Blood Moderate A Ur Leukocyte Esterase Small A Urine RBC 20 H Urine WBC 11 H Ur Squamous Epith Cells 7 H Urine Bacteria Few A Hyaline Casts 4 H Urine Mucus Few A 07/25/21 07/25/21 07/25/21 08:06 08:06 08:06 WBC 4.4 L MCHC RDW 15.6 H Plt Count MPV 10.9 H Lymph # (Auto) 1.29 L Monocytes % (Manual) Platelet Estimate RBC Morphology Anisocytosis D-Dimer 0.60 H Potassium 3.0 L Carbon Dioxide 18 L BUN 32 H Creatinine 1.2 H Glucose 120 H Calcium GGT AST 60 H ALT 73 H NT-Pro-B Natriuret Pep 701.6 H Total Protein Globulin Urine Occult Blood Ur Leukocyte Esterase Urine RBC Urine WBC Ur Squamous Epith Cells Urine Bacteria Hyaline Casts Urine Mucus Meds: Medications Acetaminophen (Acetaminophen 325 Mg Tablet) 650 mg PO Q6HP PRN; Protocol PRN Reason: Per Pain Protocol/Fever > 101 Hydrocodone Bitart/Acetaminophen (Hydrocodone/Apap 5/325mg Tablet) 1 tab PO Q8HP PRN; Protocol PRN Reason: pain Albuterol/Ipratropium (Ipratropium/Albuterol 3 Ml Ampul.Neb) 3 ml NEB Q4HRT PRN PRN Reason: wheezing Aspirin (Aspirin 81 Mg Tab.Chew) 81 mg PO DAILY [facility] Last Admin: 07/26/21 07:58 Dose: 81 mg Documented by: Atorvastatin Calcium (Atorvastatin 40 Mg Tablet) 40 mg PO [facility] Last Admin: 07/25/21 20:33 Dose: 40 mg Documented by: Dexamethasone (Dexamethasone 10 Mg/Ml Vial) 6 mg IV DAILY [facility] Stop: 08/03/21 09:01 Last Admin: 07/26/21 07:57 Dose: 6 mg Documented by: Docusate Sodium (Docusate Sodium 100 Mg Capsule) 100 mg PO BID [facility] Last Admin: 07/26/21 07:58 Dose: Not Given Documented by: Enoxaparin Sodium (Enoxaparin 40 Mg/0.4 Ml Syringe) 40 mg SQ BID [facility] Last Admin: 07/26/21 07:58 Dose: 40 mg Documented by: REMDESIVIR 100 mg/ Sodium (Chloride) 250 mls @ 500 mls/hr IV DAILY@1200 [facility] Stop: 07/29/21 12:29 Sodium Chloride (Sodium Chloride 0.9%) 1,000 mls @ 125 mls/hr IV .Q8H [facility] Last Admin: 07/26/21 09:50 Dose: 125 mls/hr Documented by: Lactulose (Lactulose 20 Gm/30 Ml Oral.Grazyna) 10 gm PO DAILYP PRN PRN Reason: Constipation Levothyroxine Sodium (Levothyroxine 75 Mcg Tablet) 75 mcg PO QAMAC [facility] Last Admin: 07/26/21 07:58 Dose: 75 mcg Documented by: Metoprolol Tartrate (Metoprolol Tartrate 5 Mg/5 Ml Vial) 5 mg IV Q2H PRN PRN Reason: Tachyarrhythmias Metoprolol Tartrate (Metoprolol Tartrate 25 Mg Tablet) 25 mg PO BID [facility] Last Admin: 07/26/21 12:33 Dose: Not Given Documented by: Ondansetron HCl (Ondansetron 4 Mg/2 Ml Vial) 4 mg IV Q4HP PRN; Protocol PRN Reason: Nausea And Vomiting Pneumococcal Polyvalent Vaccine (Pneumococcal 23-Nataly P-Sac Vac 0.5 Ml Syringe) 0.5 ml IM .ONCE ONE Stop: 07/28/21 10:01 Senna (Sennosides 1 Tablet) 2 tab PO HSP PRN PRN Reason: Constipation Sertraline HCl (Sertraline 100 Mg Tablet) 100 mg PO QDAY [facility] Last Admin: 07/26/21 07:58 Dose: 100 mg Documented by: Sodium Chloride (0.9 % Sodium Chloride 10 Ml Syringe) 10 ml IV Q8 [facility] Last Admin: 07/26/21 05:14 Dose: Not Given Documented by: Vitamin D (Vitamin D3 25 Mcg Tablet) 100 mcg PO DAILY [facility] Last Admin: 07/26/21 07:57 Dose: 100 mcg Documented by: A/P Narrative A/P Narrative: A: #Generalized weakness and fatigue: secondary to COVID #Hypoxic respiratory failure: Resolved #Paroxysmal atrial fibrillation: #Covid illness: #Elevated LFTs: likely secondary to COVID #CKD III: #Essential hypertension: #Mild COPD ( ): #CAD s/p CABG: #h/o Diastolic dysfunction, grade 2: #Hypothyroidism: #JULIETA on CPAP: #Obesity: BMI 48 Plan: -Dexamethasone/Remdesivir -Decrease Lopressor to 25 mg twice daily, as needed IV Lopressor for rate control. -Reviewed anticoagulation with the patient: [id number] score 4, HAS-BLED score 3, patient wants to think about anticoagulation -Defer TTE for now as the patient had one on 04/20/2021 and A. fib is a known diagnosis. -Discontinue IV fluid. -Continue home aspirin, atorvastatin, levothyroxine. -Holding home chlorthalidone, losartan for now. -CPAP at bedtime. 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 -Disposition: Probably home when stable versus SNF for rehab. -ppx: Lovenox SQ bid for obesity. 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
[2021-07-26] MEDS: REMDESIVIR 100 MG in 0.9 % SODIUM CHLORIDE 250 ML IV SCH (14:03)
--- NOTE | 2021-07-26 14:52 | EKG ---
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 Measurements Intervals [place] Rate: 54 P: 67 MO: 177 QRS: 69 QRSD: 94 T: 60 QT: 480 QTc: 455 Interpretive Statements SINUS ARRHYTHMIA Anteroseptal infarct, age indeterminate Electronically Signed On 07-26-2021 14:52:11 PST by Ye Galaviz D.O. /store/[email or web address]/[id number]
[2021-07-26] MEDS: ATORVASTATIN 40 MG TABLET PO SCH (20:05)
[2021-07-27] MEDS: 0.9 % SODIUM CHLORIDE 1,000 ML IV SCH ×2 (00:45→02:36)
[2021-07-27] MEDS: HYDROcodone/APAP 5/325MG TABLET PO PRN ×2 (03:40→20:13)
[2021-07-27] MEDS: 0.9 % SODIUM CHLORIDE 10 ML SYRINGE IV SCH ×3 (05:30→20:14)
[2021-07-27 07:06] LABS: Hematocrit 38.7 % (34.1-44.9); Hemoglobin 12.1 g/dL (11.2-15.7); Mean Cell Volume 85.8 fL (80.0-100.0); Mean Corpuscular HGB Conc 31.3 g/dL (31.0-36.0); Mean Platelet Volume 11.5 fL (7.4-10.4); Platelet Count 132 K/mcL (140-440); RBC 4.51 M/mcL (3.59-5.38); Red Cell Distribution Width 15.6 % (11.5-14.5); WBC 5.4 K/mcL (4.5-11.0)
[2021-07-27 07:29] LABS: ALT/SGPT 72 U/L (<40); AST/SGOT 52 U/L (<32); Albumin 3.2 gm/dL (3.2-5.2); Albumin/Globulin Ratio 1.8 (1.0-2.3); Alkaline Phosphatase 83 U/L (39-117); Bilirubin,Direct < 0.2 mg/dL (0-0.3); Bilirubin,Total 0.3 mg/dL (0.1-1.0); Blood Urea Nitrogen 26 mg/dL (8-23); Calcium 7.7 mg/dL (8.6-10.4); Carbon Dioxide 19 mmol/L (22-30); Chloride 108 mmol/L (96-108); Globulin 1.8 gm/dL (2.2-3.7); Glomerular Filtration Rate 55; Glucose 102 mg/dL (70-105); Lactate Dehydrogenase 215 U/L (135-225); Phosphorous 2.2 mg/dL (2.5-4.5); Triglycerides 54 mg/dL (<150); Uric Acid 5.5 mg/dL (2.5-8.0)
[2021-07-27] MEDS ORDERED: FUROSEMIDE 40 MG/4 ML VIAL IV ONE (07:30)
--- NOTE | 2021-07-27 07:30 | Internal Med Progress Note ---
SUBJECTIVE Subjective Patient information: Note initiated : 07/27/21 at 7:27 am Service Date, if different from initiated Date: [] Patient: Jennie Ho a 75 y/o F admitted on 07/25/21 for short of breath. Chief Complaint: [] Principal diagnosis: Shortness of breath Interval history: Ms. Yoni Balbuena is a 75 year old female with a history of hypertension, chronic kidney disease stage III, atrial fibrillation, coronary artery disease status post CABG, hypothyroidism, mild COPD, obstructive sleep apnea, diastolic dysfunction, obesity presented to the emergency department for shortness of breath and nausea. The patient was recently exposed to Covid by a family member. In the emergency department, the patient tested positive for Covid via Melani of rapid antigen test. The patient had a 2 L/min oxygen requirement. In addition, the patient was found to be in atrial fibrillation with rapid ventricular response and received multiple doses of IV Cardizem then IV Lopressor. Chest x-ray did not show any acute changes. CBC and chemistry panel remarkable for mild leukopenia, hypokalemia, creatinine of 1.2 which is near her baseline, mildly elevated ALT and AST. Hospital medicine was consulted for admission. The patient says that her symptoms began about 7 days prior to admission. The patient has not been vaccinated for COVID. 07/26 On room air, converted from atrial fibrillation to sinus bradycardia. Decrease Lopressor to 25 mg twice daily. Discussed risks and benefits of oral anticoagulation for paroxysmal atrial fibrillation, the patient wants to think about it some more and possibly discuss it with her primary care provider. Hypokalemia and hypomagnesemia resolved after supplementation. Creatinine back to patient's baseline. Mildly elevated LFTs. Patient still feels very weak, not ready to go home yet. Awaiting PT recommendations. 07/27 Patient says she slept better last night after pain medication. Currently on room air. Occasional cough. No shortness of breath at Rest. Leukopenia improved. Liver enzymes slightly improved. Review of Systems: denies headache/fever/chills/nausea/vomiting/chest or abdominal pain/diarrhea. Otherwise see above. Constitutional Vitals: Vital Signs Temp Pulse Resp BP Pulse Ox 97.6 F 51 L 13 145/76 94 07/27/21 04:01 07/27/21 06:01 07/27/21 06:01 07/27/21 06:01 07/27/21 06:01 Period Temp Pulse Resp BP Sys/Talamantes Pulse Ox Last 24 Hr 97.0 F-97.6 F 46-57 06-03 106-162/60-99 92-97 Intake and Output 07/26/21 07/27/21 07/27/21 21:59 05:59 13:59 Intake Total 2210 942 Balance 2210 942 Weight 135.624 kg Intake & Output: Intake & Output 07/26/21 07/27/21 07/27/21 21:59 05:59 13:59 Intake Total 2210 942 Balance 2210 942 Weight 135.624 kg Intake: IV 1250 942 Sodium Chloride 0.9% 1,000 ml @ 1000 942 125 mls/hr IV .Q8H [facility] Rx#: [id number] Veklury 100 mg In Sodium 250 Chloride 0.9% 250 ml @ 500 mls/ hr IV DAILY@1200 [facility] Rx#: [id number] Oral 960 Other: Meal Dinner Percent of Meal Consumed 100% Feeding Ability Independent Urine Appearance Clear Clear Urine Color Pale Straw Urine Odor Normal # Voids 1 1 Exam: General: Alert, Awake, No acute Distress, obese Eyes/N/T: EOMI, Head/Neck: neck supple, CV: Some irregularity mildly bradycardia, No murmurs, Pulm: Clear b/l, no wheezing/rhonchi/rales Abd: soft, nontender, +BS x4 Ext: no clubbing/cyanosis/edema Neuro: Alert, no focal deficits, moves all extremities, Skin: warm/dry OBJ DATA Labs CBC & Chem 7: 07/27/21 05:55 07/27/21 05:55 Labs: Abnormal Lab Results 07/27/21 07/26/21 07/26/21 05:55 06:02 06:01 WBC 2.4 L MCHC 30.5 L RDW 15.6 H 15.7 H Plt Count 132 L 137 L MPV 11.5 H 11.0 H Lymph # (Auto) Monocytes % (Manual) 14 H Platelet Estimate Decreased A RBC Morphology Abnormal A Anisocytosis 1+ A D-Dimer Potassium Carbon Dioxide 18 L BUN Creatinine Glucose 143 H Calcium 7.9 L GGT 50 H AST 68 H ALT 81 H NT-Pro-B Natriuret Pep Total Protein 5.3 L Globulin 2.0 L Urine Occult Blood Ur Leukocyte Esterase Urine RBC Urine WBC Ur Squamous Epith Cells Urine Bacteria Hyaline Casts Urine Mucus 07/25/21 07/25/21 07/25/21 09:45 08:06 08:06 WBC MCHC RDW Plt Count MPV Lymph # (Auto) Monocytes % (Manual) Platelet Estimate RBC Morphology Anisocytosis D-Dimer 0.60 H Potassium 3.0 L Carbon Dioxide 18 L BUN 32 H Creatinine 1.2 H Glucose 120 H Calcium GGT AST 60 H ALT 73 H NT-Pro-B Natriuret Pep 701.6 H Total Protein Globulin Urine Occult Blood Moderate A Ur Leukocyte Esterase Small A Urine RBC 20 H Urine WBC 11 H Ur Squamous Epith Cells 7 H Urine Bacteria Few A Hyaline Casts 4 H Urine Mucus Few A 07/25/21 08:06 WBC 4.4 L MCHC RDW 15.6 H Plt Count MPV 10.9 H Lymph # (Auto) 1.29 L Monocytes % (Manual) Platelet Estimate RBC Morphology Anisocytosis D-Dimer Potassium Carbon Dioxide BUN Creatinine Glucose Calcium GGT AST ALT NT-Pro-B Natriuret Pep Total Protein Globulin Urine Occult Blood Ur Leukocyte Esterase Urine RBC Urine WBC Ur Squamous Epith Cells Urine Bacteria Hyaline Casts Urine Mucus Meds: Medications Acetaminophen (Acetaminophen 325 Mg Tablet) 650 mg PO Q6HP PRN; Protocol PRN Reason: Per Pain Protocol/Fever > 101 Last Admin: 07/26/21 23:58 Dose: 650 mg Documented by: Hydrocodone Bitart/Acetaminophen (Hydrocodone/Apap 5/325mg Tablet) 1 tab PO Q8HP PRN; Protocol PRN Reason: pain Last Admin: 07/27/21 03:40 Dose: 1 tab Documented by: Albuterol/Ipratropium (Ipratropium/Albuterol 3 Ml Ampul.Neb) 3 ml NEB Q4HRT PRN PRN Reason: wheezing Aspirin (Aspirin 81 Mg Tab.Chew) 81 mg PO DAILY [facility] Last Admin: 07/26/21 07:58 Dose: 81 mg Documented by: Atorvastatin Calcium (Atorvastatin 40 Mg Tablet) 40 mg PO HS [facility] Last Admin: 07/26/21 20:05 Dose: 40 mg Documented by: Dexamethasone (Dexamethasone 10 Mg/Ml Vial) 6 mg IV DAILY [facility] Stop: 08/03/21 09:01 Last Admin: 07/26/21 07:57 Dose: 6 mg Documented by: Docusate Sodium (Docusate Sodium 100 Mg Capsule) 100 mg PO BID [facility] Last Admin: 07/26/21 20:05 Dose: Not Given Documented by: Enoxaparin Sodium (Enoxaparin 40 Mg/0.4 Ml Syringe) 40 mg SQ BID [facility] Last Admin: 07/26/21 20:05 Dose: 40 mg Documented by: REMDESIVIR 100 mg/ Sodium (Chloride) 250 mls @ 500 mls/hr IV DAILY@1200 [facility] Stop: 07/29/21 12:29 Last Infusion: 07/26/21 14:33 Dose: Infused Documented by: Sodium Chloride (Sodium Chloride 0.9%) 1,000 mls @ 125 mls/hr IV .Q8H [facility] Last Admin: 07/27/21 02:36 Dose: 125 mls/hr Documented by: Lactulose (Lactulose 20 Gm/30 Ml Oral.Grazyna) 10 gm PO DAILYP PRN PRN Reason: Constipation Levothyroxine Sodium (Levothyroxine 75 Mcg Tablet) 75 mcg PO QAMAC [facility] Last Admin: 07/26/21 07:58 Dose: 75 mcg Documented by: Metoprolol Tartrate (Metoprolol Tartrate 5 Mg/5 Ml Vial) 5 mg IV Q2H PRN PRN Reason: Tachyarrhythmias Metoprolol Tartrate (Metoprolol Tartrate 25 Mg Tablet) 25 mg PO BID [facility] Last Admin: 07/26/21 20:06 Dose: Not Given Documented by: Ondansetron HCl (Ondansetron 4 Mg/2 Ml Vial) 4 mg IV Q4HP PRN; Protocol PRN Reason: Nausea And Vomiting Last Admin: 07/27/21 02:44 Dose: 4 mg Documented by: Pneumococcal Polyvalent Vaccine (Pneumococcal 23-Nataly P-Sac Vac 0.5 Ml Syringe) 0.5 ml IM .ONCE ONE Stop: 07/28/21 10:01 Senna (Sennosides 1 Tablet) 2 tab PO HSP PRN PRN Reason: Constipation Sertraline HCl (Sertraline 100 Mg Tablet) 100 mg PO QDAY [facility] Last Admin: 07/26/21 07:58 Dose: 100 mg Documented by: Sodium Chloride (0.9 % Sodium Chloride 10 Ml Syringe) 10 ml IV Q8 [facility] Last Admin: 07/27/21 05:30 Dose: 10 ml Documented by: Vitamin D (Vitamin D3 25 Mcg Tablet) 100 mcg PO DAILY [facility] Last Admin: 07/26/21 07:57 Dose: 100 mcg Documented by: A/P Narrative A/P Narrative: A: #Generalized weakness and fatigue: secondary to COVID #Hypoxic respiratory failure: Resolved #Paroxysmal atrial fibrillation: #Covid illness: on room air now #Elevated LFTs: likely secondary to COVID, stable #CKD III: #Essential hypertension: #Mild COPD (no home O2): #CAD s/p CABG: #h/o Diastolic dysfunction, grade 2: #Hypothyroidism: #JULIETA on CPAP: #Obesity: BMI 48 Plan: -Dexamethasone/Remdesivir -Decreased Lopressor -Reviewed anticoagulation with the patient: [id number] score 4, HAS-BLED score 3, patient wants to think about anticoagulation -Defer TTE for now as the patient had one on 04/20/2021 and A. fib is a known diagnosis. -Continue home aspirin, atorvastatin, levothyroxine. -restart home chlorthalidone, losartan -CPAP at bedtime. 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 -Disposition: Probably home when stable versus SNF for rehab. -ppx: Lovenox SQ bid for obesity. 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
[2021-07-27] MEDS: LEVOTHYROXINE 75 MCG TABLET PO SCH (07:55)
[2021-07-27 08:20] LABS: Band Neutrophils % 2 % (0-10); Lymphocytes % 24 % (15-49); Monocytes % (Manual) 15 % (1-12); Platelet Estimate DECREASED (Normal); RBC Morphology NORMAL (Normal); Segmented Neutrophils % 59 % (38-78)
[2021-07-27] MEDS: DEXAMETHASONE 10 MG/ML VIAL IV SCH (08:41)
[2021-07-27] MEDS: ENOXAPARIN 40 MG/0.4 ML SYRINGE SQ SCH ×2 (08:41→20:14)
[2021-07-27] MEDS: ASPIRIN 81 MG TAB.CHEW PO SCH (08:42)
[2021-07-27] MEDS: METOPROLOL TARTRATE 25 MG TABLET PO SCH ×3 (08:42→20:06)
[2021-07-27] MEDS: LOSARTAN 50 MG TABLET PO SCH (08:42)
[2021-07-27] MEDS: VITAMIN D3 25 MCG TABLET PO SCH (08:42)
[2021-07-27] MEDS: DOCUSATE SODIUM 100 MG CAPSULE PO SCH ×2 (08:42→20:05)
[2021-07-27] MEDS: CHLORTHALIDONE 25 MG TABLET PO SCH (09:01)
[2021-07-27] MEDS: SERTRALINE 100 MG TABLET PO SCH (09:01)
--- NOTE | 2021-07-27 11:13 | Discharge Summary ---
Discharge Provider Provider Patient information: Note initiated : 07/27/21 at 11:11 am Service Date, if different from initiated Date: [] Patient: Jennie Ho 75 y/o F admitted on 07/25/21 for short of breath. Chief Complaint: [] Date of admission: 07/25/21 16:20 Discharge date: 07/28/21 Primary care physician: Son Eubanks DO Consults: 07/25/21 Consult to Physician [CONS] Stat Comment: Consulting Provider: Burak Sanchez Reason For Exam: Physician to Consult Discharge Meds Discharge Medications Home Medications aspirin 81 mg chewable tablet 81 mg PO DAILY 01/20/16 [History Confirmed 07/25/21 Last Taken 07/24/21] levothyroxine 75 mcg capsule 75 mcg PO QDAY #90 cap 07/18/20 [Rx Confirmed 07/25/21 Last Taken 07/24/21] cholecalciferol (vitamin D3) 100 mcg (4,000 unit) capsule 100 mcg PO QDAY #90 cap 09/16/20 [Rx Confirmed 07/25/21 Last Taken 07/24/21] atorvastatin 40 mg tablet 40 mg PO HS #90 tab 02/12/21 [Rx Confirmed 07/25/21 Last Taken 07/24/21] chlorthalidone 25 mg tablet 25 mg PO DAILY #90 tab 02/17/21 [Rx Confirmed 07/25/21 Last Taken 07/24/21] sertraline 100 mg tablet 100 mg PO QDAY #90 tab 03/16/21 [Rx Confirmed 07/25/21 Last Taken 07/24/21] losartan 100 mg tablet 100 mg PO DAILY #90 tab 06/22/21 [Rx Confirmed 07/25/21 Last Taken 07/24/21] hydrocodone 5 mg-acetaminophen 325 mg tablet 1 tab PO Q8HP PRN 07/25/21 [History Confirmed 07/25/21 Last Taken 06/25/21] COURSE Hospital Course Hospital course: Interval history: Ms. Yoni Balbuena is a 75 year old female with a history of hypertension, chronic kidney disease stage III, atrial fibrillation, coronary artery disease status post CABG, hypothyroidism, mild COPD, obstructive sleep apnea, diastolic dysfunction, obesity presented to the emergency department for shortness of breath and nausea. The patient was recently exposed to Covid by a family member. In the emergency department, the patient tested positive for Covid via Melani of rapid antigen test. The patient had a 2 L/min oxygen requirement. In addition, the patient was found to be in atrial fibrillation with rapid ventricular response and received multiple doses of IV Cardizem then IV Lopressor. Chest x-ray did not show any acute changes. CBC and chemistry panel remarkable for mild leukopenia, hypokalemia, creatinine of 1.2 which is near her baseline, mildly elevated ALT and AST. Hospital medicine was consulted for admission. The patient says that her symptoms began about 7 days prior to admission. The patient has not been vaccinated for COVID. 07/26 On room air, converted from atrial fibrillation to sinus bradycardia. Decrease Lopressor to 25 mg twice daily. Discussed risks and benefits of oral anticoagulation for paroxysmal atrial fibrillation, the patient wants to think about it some more and possibly discuss it with her primary care provider. Hypokalemia and hypomagnesemia resolved after supplementation. Creatinine back to patient's baseline. Mildly elevated LFTs. Patient still feels very weak, not ready to go home yet. Awaiting PT recommendations. 07/27 Patient says she slept better last night after pain medication. Currently on room air. Occasional cough. No shortness of breath at Rest. Leukopenia improved. Liver enzymes slightly improved. 07/28 No overnight event or new complaints. Patient stable for discharge. On room air. Patient high risk for readmission given age and comorbidities A: #Generalized weakness and fatigue: secondary to COVID #Hypoxic respiratory failure: Resolved #Paroxysmal atrial fibrillation: #Covid illness: on room air now #Elevated LFTs: likely secondary to COVID, stable #CKD III: #Essential hypertension: #Mild COPD (no home O2): #CAD s/p CABG: #h/o Diastolic dysfunction, grade 2: #Hypothyroidism: #JULIETA on CPAP: #Obesity: BMI 48 #Bradycardia: asymptomatic Plan: -Lopressor hold d/t bradycardia -Reviewed anticoagulation with the patient: [id number] score 4, HAS-BLED score 3, patient wants to think about anticoagulation Discharge diagnosis: Generalized weakness fatigue secondary Covid illness acute hypoxic respite Secondary discharge diagnosis: Transaminitis PAF chronic kidney disease hypertension COPD CAD diastolic heart failure hypothyroidism obstructive sleep apnea obesity Time Spent with Patient Time attestation: Total time spent providing and/or coordinating discharge services: Time spent: Greater than 30 minutes EXAM Constitutional Vitals: Temp Pulse Resp BP Pulse Ox 97.5 F 51 L 15 150/71 94 07/27/21 08:01 07/27/21 06:01 07/27/21 08:44 07/27/21 08:01 07/27/21 06:01 Discharge Data Data Completed and Pending Labs on day of discharge: Labs from last 24 hours 07/27/21 07/27/21 07/27/21 05:55 05:55 05:55 WBC 5.4 RBC 4.51 Hgb 12.1 Hct 38.7 MCV 85.8 MCH 26.8 MCHC 31.3 RDW 15.6 H Plt Count 132 L MPV 11.5 H Seg Neutrophils % 59 Band Neutrophils % 2 Lymphocytes % 24 Monocytes % (Manual) 15 H Platelet Estimate Decreased A RBC Morphology Normal Sodium 139 Potassium 3.9 Chloride 108 Carbon Dioxide 19 L Anion Gap 12.0 BUN 26 H Creatinine 1.0 GFR Calculation 55 Glucose 102 Uric Acid 5.5 Calcium 7.7 L Phosphorus 2.2 L Magnesium 1.8 Total Bilirubin 0.3 Direct Bilirubin < 0.2 GGT 44 H AST 52 H ALT 72 H Alkaline Phosphatase 83 Lactate Dehydrogenase 215 C-Reactive Protein < 0.30 Total Protein 5.0 L Albumin 3.2 Globulin 1.8 L Albumin/Globulin Ratio 1.8 Triglycerides 54 Preliminary micro results at discharge 07/25/21 08:05 Blood Culture - Preliminary Blood 07/25/21 07:55 Blood Culture - Preliminary Blood Discharge Plan Patient/Caregiver Discharge Instructions Activity: increase activity as tolerated Diet: Regular Diet Instructions: COVID-19, Metoprolol (By mouth), A-fib (Atrial Fibrillation) (GEN), Hypoxia (GEN) Prescriptions: Continued levothyroxine 75 mcg capsule 75 mcg PO QDAY Qty: 90 3RF atorvastatin 40 mg tablet 40 mg PO HS Qty: 90 1RF chlorthalidone 25 mg tablet 25 mg PO DAILY Qty: 90 1RF losartan 100 mg tablet 100 mg PO DAILY Qty: 90 1RF cholecalciferol (vitamin D3) 100 mcg (4,000 unit) capsule 100 mcg PO QDAY Qty: 90 4RF sertraline 100 mg tablet 100 mg PO QDAY Qty: 90 3RF aspirin 81 MG tablet,chewable 81 mg PO DAILY 0RF Label Comments: HOLDING FOR SURGERY hydrocodone-acetaminophen 5-325 mg tablet 1 tab PO Q8HP PRN (Reason: pain) 0RF Follow Up Plan Follow up with: Son Eubanks DO [Primary Care Provider] - 08/04/21 10:30 am (Please arrive at 10:15 am) Patient Disposition: Home, Self-Care Prognosis: Fair Overall status at discharge: patient is progressing back to baseline Discharge Orders: Discharge Order (Routine); Ordered 07/28/21 Ordered By: Epi Ziegler [facility] VTE Deep Vein Thrombosis/Pulmonary Embolism Present on Admission: No
[2021-07-27] MEDS: REMDESIVIR 100 MG in 0.9 % SODIUM CHLORIDE 250 ML IV SCH (11:37)
[2021-07-27] MEDS: ATORVASTATIN 40 MG TABLET PO SCH (20:13)
[2021-07-28] MEDS: 0.9 % SODIUM CHLORIDE 10 ML SYRINGE IV SCH (05:31)
--- NOTE | 2021-07-28 07:32 | Internal Med Progress Note ---
SUBJECTIVE Subjective Patient information: Note initiated : 07/28/21 at 7:28 am Service Date, if different from initiated Date: [] Patient: Jennie Ho a 75 y/o F admitted on 07/25/21 for short of breath. Chief Complaint: [] Principal diagnosis: Shortness of breath Interval history: Ms. Yoni Balbuena is a 75 year old female with a history of hypertension, chronic kidney disease stage III, atrial fibrillation, coronary artery disease status post CABG, hypothyroidism, mild COPD, obstructive sleep apnea, diastolic dysfunction, obesity presented to the emergency department for shortness of breath and nausea. The patient was recently exposed to Covid by a family member. In the emergency department, the patient tested positive for Covid via Melani of rapid antigen test. The patient had a 2 L/min oxygen requirement. In addition, the patient was found to be in atrial fibrillation with rapid ventricular response and received multiple doses of IV Cardizem then IV Lopressor. Chest x-ray did not show any acute changes. CBC and chemistry panel remarkable for mild leukopenia, hypokalemia, creatinine of 1.2 which is near her baseline, mildly elevated ALT and AST. Hospital medicine was consulted for admission. The patient says that her symptoms began about 7 days prior to admission. The patient has not been vaccinated for COVID. 07/26 On room air, converted from atrial fibrillation to sinus bradycardia. Decrease Lopressor to 25 mg twice daily. Discussed risks and benefits of oral anticoagulation for paroxysmal atrial fibrillation, the patient wants to think about it some more and possibly discuss it with her primary care provider. Hypokalemia and hypomagnesemia resolved after supplementation. Creatinine back to patient's baseline. Mildly elevated LFTs. Patient still feels very weak, not ready to go home yet. Awaiting PT recommendations. 07/27 Patient says she slept better last night after pain medication. Currently on room air. Occasional cough. No shortness of breath at Rest. Leukopenia improved. Liver enzymes slightly improved. Review of Systems: denies headache/fever/chills/nausea/vomiting/chest or abdominal pain/diarrhea. Otherwise see above. Constitutional Vitals: Vital Signs Temp Pulse Resp BP Pulse Ox 97.4 F 43 L 11 L 151/77 92 07/28/21 00:01 07/28/21 04:18 07/28/21 04:18 07/28/21 04:18 07/28/21 04:18 Period Temp Pulse Resp BP Sys/[place] Pulse Ox Last 24 Hr 97.0 F-97.8 F 43-51 11-26 128-151/71-88 91-100 Intake and Output 07/27/21 07/28/21 07/28/21 21:59 05:59 13:59 Intake Total 400 Output Total 1000 400 Balance -600 -400 Weight 134.972 kg Intake & Output: Intake & Output 07/27/21 07/28/21 07/28/21 21:59 05:59 13:59 Intake Total 400 Output Total 1000 400 Balance -600 -400 Weight 134.972 kg Intake: Oral 400 Output: Void Amount 1000 400 Other: Meal Lunch Percent of Meal Consumed 100% Feeding Ability Independent Urine Appearance Clear Clear Urine Color Pale Dark Yellow Urine Odor Normal Exam: General: Alert, Awake, No acute Distress, obese Eyes/N/T: EOMI, Head/Neck: neck supple, CV: Some irregularity mildly bradycardia, No murmurs, Pulm: Clear b/l, no wheezing/rhonchi/rales Abd: soft, nontender, +BS x4 Ext: no clubbing/cyanosis/edema Neuro: Alert, no focal deficits, moves all extremities, Skin: warm/dry OBJ DATA Labs CBC & Chem 7: 07/28/21 06:22 07/28/21 06:21 Labs: Abnormal Lab Results 07/27/21 07/27/21 07/26/21 05:55 05:55 06:02 WBC 2.4 L MCHC 30.5 L RDW 15.6 H 15.7 H Plt Count 132 L 137 L MPV 11.5 H 11.0 H Lymph # (Auto) Monocytes % (Manual) 15 H 14 H Platelet Estimate Decreased A Decreased A RBC Morphology Abnormal A Anisocytosis 1+ A D-Dimer Potassium Carbon Dioxide 19 L BUN 26 H Creatinine Glucose Calcium 7.7 L Phosphorus 2.2 L GGT 44 H AST 52 H ALT 72 H NT-Pro-B Natriuret Pep Total Protein 5.0 L Globulin 1.8 L Urine Occult Blood Ur Leukocyte Esterase Urine RBC Urine WBC Ur Squamous Epith Cells Urine Bacteria Hyaline Casts Urine Mucus 07/26/21 07/25/21 07/25/21 06:01 09:45 08:06 WBC MCHC RDW Plt Count MPV Lymph # (Auto) Monocytes % (Manual) Platelet Estimate RBC Morphology Anisocytosis D-Dimer 0.60 H Potassium Carbon Dioxide 18 L BUN Creatinine Glucose 143 H Calcium 7.9 L Phosphorus GGT 50 H AST 68 H ALT 81 H NT-Pro-B Natriuret Pep Total Protein 5.3 L Globulin 2.0 L Urine Occult Blood Moderate A Ur Leukocyte Esterase Small A Urine RBC 20 H Urine WBC 11 H Ur Squamous Epith Cells 7 H Urine Bacteria Few A Hyaline Casts 4 H Urine Mucus Few A 07/25/21 07/25/21 08:06 08:06 WBC 4.4 L MCHC RDW 15.6 H Plt Count MPV 10.9 H Lymph # (Auto) 1.29 L Monocytes % (Manual) Platelet Estimate RBC Morphology Anisocytosis D-Dimer Potassium 3.0 L Carbon Dioxide 18 L BUN 32 H Creatinine 1.2 H Glucose 120 H Calcium Phosphorus GGT AST 60 H ALT 73 H NT-Pro-B Natriuret Pep 701.6 H Total Protein Globulin Urine Occult Blood Ur Leukocyte Esterase Urine RBC Urine WBC Ur Squamous Epith Cells Urine Bacteria Hyaline Casts Urine Mucus Meds: Medications Acetaminophen (Acetaminophen 325 Mg Tablet) 650 mg PO Q6HP PRN; Protocol PRN Reason: Per Pain Protocol/Fever > 101 Last Admin: 07/26/21 23:58 Dose: 650 mg Documented by: Hydrocodone Bitart/Acetaminophen (Hydrocodone/Apap 5/325mg Tablet) 1 tab PO Q8HP PRN; Protocol PRN Reason: pain Last Admin: 07/27/21 20:13 Dose: 1 tab Documented by: Albuterol/Ipratropium (Ipratropium/Albuterol 3 Ml Ampul.Neb) 3 ml NEB Q4HRT PRN PRN Reason: wheezing Aspirin (Aspirin 81 Mg Tab.Chew) 81 mg PO DAILY [facility] Last Admin: 07/27/21 08:42 Dose: 81 mg Documented by: Atorvastatin Calcium (Atorvastatin 40 Mg Tablet) 40 mg PO HS [facility] Last Admin: 07/27/21 20:13 Dose: 40 mg Documented by: Chlorthalidone (Chlorthalidone 25 Mg Tablet) 25 mg PO DAILY [facility] Last Admin: 07/27/21 09:01 Dose: 25 mg Documented by: Dexamethasone (Dexamethasone 10 Mg/Ml Vial) 6 mg IV DAILY [facility] Stop: 08/03/21 09:01 Last Admin: 07/27/21 08:41 Dose: 6 mg Documented by: Docusate Sodium (Docusate Sodium 100 Mg Capsule) 100 mg PO BID [facility] Last Admin: 07/27/21 20:05 Dose: Not Given Documented by: Enoxaparin Sodium (Enoxaparin 40 Mg/0.4 Ml Syringe) 40 mg SQ BID [facility] Last Admin: 07/27/21 20:14 Dose: 40 mg Documented by: REMDESIVIR 100 mg/ Sodium (Chloride) 250 mls @ 500 mls/hr IV DAILY@1200 [facility] Stop: 07/29/21 12:29 Last Infusion: 07/27/21 12:13 Dose: Infused Documented by: Lactulose (Lactulose 20 Gm/30 Ml Oral.Grazyna) 10 gm PO DAILYP PRN PRN Reason: Constipation Levothyroxine Sodium (Levothyroxine 75 Mcg Tablet) 75 mcg PO QAMAC [facility] Last Admin: 07/27/21 07:55 Dose: 75 mcg Documented by: Losartan Potassium (Losartan 50 Mg Tablet) 100 mg PO DAILY [facility] Last Admin: 07/27/21 08:42 Dose: 100 mg Documented by: Metoprolol Tartrate (Metoprolol Tartrate 5 Mg/5 Ml Vial) 5 mg IV Q2H PRN PRN Reason: Tachyarrhythmias Metoprolol Tartrate (Metoprolol Tartrate 25 Mg Tablet) 12.5 mg PO BID [facility] Last Admin: 07/27/21 20:06 Dose: Not Given Documented by: Ondansetron HCl (Ondansetron 4 Mg/2 Ml Vial) 4 mg IV Q4HP PRN; Protocol PRN Reason: Nausea And Vomiting Last Admin: 07/27/21 02:44 Dose: 4 mg Documented by: Pneumococcal Polyvalent Vaccine (Pneumococcal 23-Nataly P-Sac Vac 0.5 Ml Syringe) 0.5 ml IM .ONCE ONE Stop: 07/28/21 10:01 Senna (Sennosides 1 Tablet) 2 tab PO HSP PRN PRN Reason: Constipation Sertraline HCl (Sertraline 100 Mg Tablet) 100 mg PO QDAY [facility] Last Admin: 07/27/21 09:01 Dose: 100 mg Documented by: Sodium Chloride (0.9 % Sodium Chloride 10 Ml Syringe) 10 ml IV Q8 [facility] Last Admin: 07/28/21 05:31 Dose: 10 ml Documented by: Vitamin D (Vitamin D3 25 Mcg Tablet) 100 mcg PO DAILY [facility] Last Admin: 07/27/21 08:42 Dose: 100 mcg Documented by: A/P Narrative A/P Narrative: A: #Generalized weakness and fatigue: secondary to COVID #Hypoxic respiratory failure: Resolved #Paroxysmal atrial fibrillation: #Covid illness: on room air now #Elevated LFTs: likely secondary to COVID, stable #CKD III: #Essential hypertension: #Mild COPD (no home O2): #CAD s/p CABG: #h/o Diastolic dysfunction, grade 2: #Hypothyroidism: #JULIETA on CPAP: #Obesity: BMI 48 #Bradycardia: asymptomatic Plan: -Dexamethasone/Remdesivir -Lopressor hold d/t bradycardia -Reviewed anticoagulation with the patient: [id number] score 4, HAS-BLED score 3, patient wants to think about anticoagulation -Defer TTE for now as the patient had one on 04/20/2021 and A. fib is a known diagnosis. -Continue home aspirin, atorvastatin, levothyroxine. -restart home chlorthalidone, losartan -CPAP at bedtime. 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 -Disposition: Probably home when stable versus SNF for rehab. -ppx: Lovenox SQ bid for obesity. CODE STATUS: Shirt Ironer Spent With Patient Time: Total time spent is greater than 50% in coordination of care (as documented) at patient's floor/unit and/or counseling patient: QUALITY VTE Deep Vein Thrombosis/Pulmonary Embolism Present on Admission: No
[2021-07-28 07:34] LABS: ALT/SGPT 65 U/L (<40); AST/SGOT 40 U/L (<32); Albumin 3.4 gm/dL (3.2-5.2); Albumin/Globulin Ratio 1.8 (1.0-2.3); Alkaline Phosphatase 90 U/L (39-117); Bilirubin,Direct 0.2 mg/dL (<0.3); Bilirubin,Total 0.5 mg/dL (0.1-1.0); Blood Urea Nitrogen 27 mg/dL (8-23); Calcium 8.2 mg/dL (8.6-10.4); Carbon Dioxide 23 mmol/L (22-30); Chloride 101 mmol/L (96-108); Globulin 1.9 gm/dL (2.2-3.7); Glomerular Filtration Rate 63; Glucose 102 mg/dL (70-105); Lactate Dehydrogenase 222 U/L (135-225); Phosphorous 2.8 mg/dL (2.5-4.5); Triglycerides 75 mg/dL (<150); Uric Acid 5.7 mg/dL (2.5-8.0)
[2021-07-28 07:53] LABS: Hematocrit 42.4 % (34.1-44.9); Hemoglobin 13.4 g/dL (11.2-15.7); Mean Cell Volume 84.5 fL (80.0-100.0); Mean Corpuscular HGB Conc 31.6 g/dL (31.0-36.0); Mean Platelet Volume 11.3 fL (7.4-10.4); Platelet Count 154 K/mcL (140-440); RBC 5.02 M/mcL (3.59-5.38); Red Cell Distribution Width 15.5 % (11.5-14.5); WBC 4.1 K/mcL (4.5-11.0)
[2021-07-28] MEDS: LEVOTHYROXINE 75 MCG TABLET PO SCH (08:31)
[2021-07-28] MEDS: DOCUSATE SODIUM 100 MG CAPSULE PO SCH (08:32)
[2021-07-28 09:03] LABS: Anisocytosis 1+ (None Seen); Band Neutrophils % 1 % (0-10); Lymphocytes % 44 % (15-49); Monocytes % (Manual) 14 % (1-12); Platelet Estimate NORMAL (Normal); RBC Morphology ABNORMAL (Normal); Segmented Neutrophils % 41 % (38-78)
[2021-07-28] MEDS: LOSARTAN 50 MG TABLET PO SCH (09:04)
[2021-07-28] MEDS: DEXAMETHASONE 10 MG/ML VIAL IV SCH (09:04)
[2021-07-28] MEDS: ASPIRIN 81 MG TAB.CHEW PO SCH (09:04)
[2021-07-28] MEDS: VITAMIN D3 25 MCG TABLET PO SCH (09:05)
[2021-07-28] MEDS: CHLORTHALIDONE 25 MG TABLET PO SCH (09:05)
[2021-07-28] MEDS: SERTRALINE 100 MG TABLET PO SCH (09:05)
[2021-07-28] MEDS: ENOXAPARIN 40 MG/0.4 ML SYRINGE SQ SCH (09:05)
[2021-07-28] MEDS ORDERED: PNEUMOCOCCAL 23-VAL P-SAC VAC 0.5 ML SYRINGE IM ONE (10:00)
[2021-07-28] MEDS ORDERED: FLU VACC QS2021-22(6MOS UP)/PF 60 MCG/0.5 ML SYRINGE IM ONE (10:15)
== END 2021-07-28 11:40 | disposition home health service (06) | DRG 177 ==
LOC: ED 07:00 → ICU 16:20
PROVIDERS: ADMIT Internal Medicine; ATTEND Internal Medicine